=== PATIENT | male | born 2000 | race Caucasian/White ===

== ENCOUNTER 2023-07-13 11:23 | Emergency (ER) | payer BC, SELFPAY ==
[2023-07-13 11:33] VITALS: BP 153/88
--- NOTE | 2023-07-13 13:46 | ED.MUSCINJ ---
HPI-Injury
General
Chief Complaint: Musculo-Skeletal Complaint
Source: patient
Exam Limitations: none
Time Seen by Provider: 07/13/23 12:17
Travel History
Have you had any contact with someone who has COVID-19?: No
Do you have any symptoms of coronavirus? Fever > 100 degrees, chills, cough, shortness of breath, sore throat, loss of taste or smell, muscle aches, or headache?: No
History of Present Illness-Injury
Initial Injury comments:
23-year-old wyjwb-phmu-fmojynft male presents with laceration to left hand he sustained today using a router. The router slipped out and cut his hand. He states he is unable to flex his small finger. Last tetanus is up-to-date. He denies
numbness or tingling otherwise
Past History
Past History
ED Past Medical History: None
ED Past Surgical History: None
Phy Exam
Physical Exam
Physical Exam:
General: Well appearing male NAD
HEENT: nc/AT
Skin: 3 cm ragged laceration volar aspect left hand at the level of the fifth metacarpal head. No significant bleeding. There is obvious tendon involvement
Musculoskeletal exam: Unable to flex at the DIP and PIP joints. He has very weak flexion of the MCP joint
Neuro: good sensation left small finger
Vascular: brisk refill left small and ring finger.
Injury Course
Orders/Labs/Results
Orders:
Orders
07/13/23 11:45
Hand, Left 3 View [CR Hand - Left Min 3 Views] Urgent
Comment:
Reason For Exam: Injury
07/13/23 13:39
Cephalexin Monohydrate [Keflex] 500 mg PO NOW STA
MDM/Problems Addressed
Differential Diagnosis Includes:
Laceration left hand with tendon involvement.. X-rays were taken which demonstrate a small injury to the proximal phalanx at the base of the small finger. Discussed these findings with orthopedics, Dr. Higgins. The wound was irrigated copiously with
saline all nonviable small flaps of skin were excised and the wound was loosely approximated with 4-0 Prolene sutures. 4 sutures were required to do so. Patient was then placed in a splint and started on Keflex. He will follow-up with for
definitive treatment of his tendon injuries
*Critical Care Note
Total Time (30-74mins, 75-104mins- exclusive of procedures): Not Applicable
ED Attending Note
-
Portions of this chart may have been created with voice recognition software.� Occasional wrong word or��sound alike� substitutions may have occurred due to the inherent limitations of voice recognition software.
Discharge Plan
Departure
Patient Disposition: Home (Routine Discharge)
Date of Disposition: 07/13/23
Time of Disposition: 13:53
Patient with high blood pressure during this ER visit?: No
Discharge Problem:
Laceration involving tendon
Prescriptions:
New
cephalexin 500 mg capsule
500 mg PO QID 7 Days Qty: 28 0RF
Referrals:
NONE,* [Family Provider] -
Jose Armando Higgins MD [Active] -
Activity Restrictions/Additional Instructions:
Keep clean and dry. Follow-up with Dr. Higgins for next available appointment. Take antibiotics as directed. You may use Tylenol or ibuprofen
Interventions
Interventions:
*Risk Screen - Suicide Last Done: 07/13/23 11:33
*General Assessment Last Done: 07/13/23 11:33
*Neglect/Abuse Screening Last Done: 07/13/23 11:33
ED- Fall Risk Assessment Last Done: 07/13/23 12:29
ED-Musculoskeletal Assessment Last Done: 07/13/23 12:00
Discharge Date and Time
Print Language: [place]
[2023-07-13] MEDS: KEFLEX 500 MG PO (13:57)
== END 2023-07-13 14:03 | disposition home or self-care (01) ==
LOC: EMR 11:23
PROVIDERS: EMERGENCY PHYSICIAN Emergency Medicine
DX: S61.412A Laceration without foreign body of left hand, initial encounter (principal); W26.9XXA Contact with unspecified sharp object(s), initial encounter
CPT/HCPCS: 99285; 13132; 73130

== ENCOUNTER → 2023-07-16 06:29 | Day surgery (SDC) | payer BC, SELFPAY ==
[2023-07-16] VITALS (7 sets, daily range): BP systolic 128–157; BP diastolic 65–80; BMI 26.3
[2023-07-16] MEDS: NORMOSOL-R 1000 IV (14:20)
[2023-07-16] MEDS: CELEBREX 200 MG PO (14:20)
[2023-07-16] MEDS: TYLENOL 1000 MG PO (14:20)
--- NOTE | 2023-07-16 14:28 | PTCARENOTE ---
IV started by Shefali DANIELS. L hand not wiped due to Surgeon dressing from office. Will monitor patient. Henrry retail pharmacy manager aware and said not to remove dressing. Report given to Henrry at [id number].
[2023-07-16] MEDS: ROXICODONE 5 MG PO (21:10)
[2023-07-16] MEDS: TYLENOL 650 MG PO (21:10)
== END ==
LOC: SDS 06:29
PROVIDERS: ATTENDING PHYSICIAN Orthopaedic Surgery
DX: S56.211A Strain of other flexor muscle, fascia and tendon at forearm level, right arm, initial encounter (principal); X58.XXXA Exposure to other specified factors, initial encounter
CPT/HCPCS: 26350